=== PATIENT | female | born 1965 | race African-American/Black ===

== ENCOUNTER 2018-12-26 17:15 | Emergency (ER) | payer MEDICAID ==
[~2018-12-26] VITALS: Ht 167.6 cm; Wt 61.2 kg
[2018-12-26] MEDS ORDERED: NKM (17:31)
[2018-12-26 17:35] VITALS: BP 133/76
--- NOTE | 2018-12-26 17:36 | NUR ---
ED Nurse Note:pt. came with 1,5cm laceration on her right hand that she got last night at 1999, no bleeding on arrival
--- NOTE | 2018-12-26 18:10 | Emergency Room Report ---
History of Present Illness General Chief Complaint: Upper Extremity Injury Source: Patient Present Illness HPI 53 YO Female presents to the ED c/o right hand laceration to the dorsum of the right 5th knuckle, cut on piece of metal at [employer]. not sure when last tdap was. denies pain at this time. not on blood thinning medications. requests tape- strips declines stitches.Denies numbness tingling or loss of sensation or gross motor movements of the extremities, incontinence of bowel or bladder. Denies CP, Palpitations, LOC, AMS, dizziness, Changes in Vision, weakness or a sudden severe headache. Pt. is right hand dominant. Allergies: Coded Allergies: No Known Allergies (Unverified , 12/26/18) Patient History Past Medical History: see triage record Past Surgical History: none Pertinent Family History: none Now: No Reviewed Nursing Documentation: PMH: Agreed; PSxH: Agreed Nursing Documentation-PMH Past Medical History: No Stated History Review of Systems All Other Systems: negative except mentioned in HPI Physical Exam Vital Signs Date Time Temp Pulse Resp B/P (MAP) Pulse Ox O2 Delivery O2 Flow Rate FiO2 12/26/18 17:26 97.9 80 16 133/76 96 Room Air Sp02 EP Interpretation: reviewed, normal General Appearance: no apparent distress, alert, GCS 15, non-toxic Head: normocephalic, atraumatic Eyes: bilateral eye normal inspection, bilateral eye PERRL ENT: hearing grossly normal, normal voice Neck: full range of motion Respiratory: lungs clear, normal breath sounds, speaking full sentences Cardiovascular #1: regular rate, rhythm, normal capillary refill Musculoskeletal: back normal, gait/station normal, normal range of motion, non- tender Neurologic: alert, oriented x3, responsive, motor strength/tone normal, sensory intact, speech normal, grossly normal Psychiatric: judgement/insight normal Skin: normal color, no rash, warm/dry, well hydrated, laceration - Dorsal right 5th knuckle laceration approx 2 cm in length. Procedures Laceration/Wound Repair Laceration/Wound Repair : Consent: Verbal Wound Location: other - Dorsal right 5th knuckle laceration approx 2 cm in length. Wound's Depth, Shape: superficial, linear Wound Length (cm): 2 Wound Explored: contaminated Irrigated w/ Saline (ccs): 500 Wound Repaired With: Steri-strips Layer Closure?: No Sterile Dressing Applied?: Yes Splint Applied?: Yes Type of Splint Applied: Right 5th finger splint Sling Applied?: No Patient Tolerated: Well Complications: None Medical Decision Making PA Attestation Dr. Bravo is my supervising Physician whom patient management has been discussed with. Diagnostic Impression: Primary Impression: Laceration ER Course 53 YO Female presents to the ED c/o right hand laceration to the dorsum of the right 5th knuckle, cut on piece of metal at [employer]. not sure when last tdap was. denies pain at this time. not on blood thinning medications. requests tape- strips declines stitches.Denies numbness tingling or loss of sensation or gross motor movements of the extremities, incontinence of bowel or bladder. Denies CP, Palpitations, LOC, AMS, dizziness, Changes in Vision, weakness or a sudden severe headache. Pt. is right hand dominant. Ddx considered but are not limited to laceration, tendon injury, cellulitis, amputation Vital signs: are WNL, pt. is afebrile H&PE are most consistent with: Dorsal right 5th knuckle laceration approx 2 cm in length. ORDERS: none required at this time, the diagnosis is clinical ED INTERVENTIONS: -Tetanus vaccine was administered as pt. vaccination status was unknown. - The wound was copiously irrigated with normal saline, and explored for foreign body for which no FB was found. --- D/w pt. that sutures are highly recommended due to the nature of this injury and its location. pt. declines. - The wound was approximated and closed using Steri-strips - Finger Splint applied to the Right 5th finger by cardiology technologist. Pt. remains neurovascularly intact. Discussed with patient: That we make every effort to approximate the laceration as best as we can so that scarring will be as cosmetically pleasing as possible with our limited cosmetic skill set in the Emergency dept. Regardless of our best efforts there will be scarring after laceration repair. The extent of scarring is unknown at this time. DISCHARGE: At this time pt. is stable for d/c to home. Will provide printed patient care instructions, and any necessary prescriptions. Care plan and follow up instructions have been discussed with the patient prior to discharge. Last Vital Signs Date Time Temp Pulse Resp B/P (MAP) Pulse Ox O2 Delivery O2 Flow Rate FiO2 12/26/18 17:35 97.9 73 16 133/76 96 Room Air Disposition: HOME, SELF-CARE Condition: Stable Scripts Bacitracin/Polymyxin B Sulfate (BACITRACIN-POLYMYXIN OINTMENT) 28.35 Gm Oint...g. 1 APPLIC TP BID, #28.3 GM Prov: Shannan Luis 12/26/18 Cephalexin* (KEFLEX*) 500 Mg Capsule 500 MG ORAL EVERY 12 HOURS for 7 Days, #14 CAP 0 Refills Prov: Shannan Luis 12/26/18 Patient Instructions: Nonsutured Laceration Care Additional Instructions: Take medications as directed. Follow up with a Primary Care Provider in 3-5 days, even if your symptoms have resolved. --Please review list of primary care clinics, if you do not already have a primary care provider Return sooner to ED if new symptoms occur, or current symptoms become worse. - Please note that this Emergency Department Report was dictated using [employer] r[employer] technology software, occasionally this can lead to erroneous entry secondary to interpretation by the dictation equipment. Shannan Luis Dec 26, 2018 18:10
[2018-12-26] MEDS ORDERED: Tetanus/Diptheria/Pertussis Vaccine 0.5ml Syr IM ONE (18:15)
[2018-12-26] MEDS ORDERED: CEPHALEXIN500 MG ORAL (19:13)
[2018-12-26] MEDS ORDERED: BACITRACIN-P28.35 GM TP (19:14)
[2018-12-26 19:19] VITALS: BP 133/76
--- NOTE | 2018-12-26 19:20 | NUR ---
ER DISCHARGE NOTE:wound was cleaned then steri strips and dry dressing placed on roght hand laceration Patient is cleared to be discharged per ERMD, pt is aox4, on room air, with stable vital signs. pt was given dc and prescription instructions, pt was able to verbalize understanding, pt is able to ambulate with steady gait. pt took all belongings.
== END 2018-12-26 19:21 | disposition home or self-care (01) ==
LOC: EMR 17:50
DX: S61.411A Laceration without foreign body of right hand, initial encounter (principal); W45.8XXA Other foreign body or object entering through skin, initial encounter; Y92.89 Other specified places as the place of occurrence of the external cause
CPT/HCPCS: 29130; 90471; 90715; 99283